=== PATIENT | female | born 1960 | race Caucasian/White ===

== ENCOUNTER → 2018-02-09 | Outpatient (CLI) | payer BC ==
[~2018-02-09] MED LIST: ASPI-715 PO; CALC500T76 PO; COLE3.756 PO; ERG400 PO; FLAX100030 PO; GLUC500C29 PO; MULT-1335 PO; OMEG-11 PO
--- NOTE | 2018-02-09 09:59 | RADIOLOGY IMAGING REPORT ---
FAC[place] [facility] [place]IENT NAME: SUSI MENCHACA : [id number] MR: [id number] V: [id number] EXAM DATE: ORDERING PHYSICIAN: ROLF LIRA TECHNOLOGIST: Tonya Park PROCEDURE:BILATERAL DIGITAL SCREENING MAMMOGRAM WITH CAD ASSISTED INTERPRETATION & 3D TOMOSYNTHESIS COMPARISON:Prior mammograms 02/03/17, 01/25/16, 01/23/15, 01/18/14, 01/13/13, 02/17/12. INDICATIONS:screening FINDINGS: Mildly heterogeneous fibroglandular tissue is seen throughout the breasts. The parenchymal pattern has remained stable allowing for difference in mammographic technique & patient positioning. Again there is an area of scaring and architectural distortion with course calcifications in the 12 o'clock position of the Left breast. There is an adjacent biopsy clip. There is no evidence of malignant appearing mass, malignant appearing calcifications or other secondary sign of malignancy in either breast. DIAGNOSTIC CATEGORY 2--BENIGN FINDING. RECOMMENDATIONS: ROUTINE MAMMOGRAM AND CLINICAL EVALUATION. IMPRESSION: BIRADS 2: Benign finding. No significant abnormality is seen. Dictated by: Debra Aranda M.D. on 02/09/2018 at 8:52 Transcribed by: SHAVON on 02/09/2018 at 8:59 Approved by: Debra Aranda M.D. on 02/09/2018 at 9:58 [facility]
== END ==
LOC: MAMO 01:44
PROVIDERS: ATTEND Nurse Practitioner Family
DX: Z12.31 Encounter for screening mammogram for malignant neoplasm of breast (principal); R92.1 Mammographic calcification found on diagnostic imaging of breast
CPT/HCPCS: 77063; 77067